=== PATIENT | male | born 2000 | race Caucasian/White ===

== ENCOUNTER 2019-03-05 21:32 | Emergency (ER) | payer MEDICAID, OTHER ==
[~2019-03-05] VITALS: Ht 172.7 cm; Wt 99.8 kg
[~2019-03-05 21:32] MED LIST: ACET650S53
[2019-03-05 21:42] VITALS: BP 123/73
--- NOTE | 2019-03-05 21:42 | NUR ---
TO BED # 09 AMBULATORY WITH MOTHER
--- NOTE | 2019-03-05 22:00 | NUR ---
18/M BIB MOTHER AND BROTHER, C/O CHRONIC L SIDED ABD PAIN, X5 DAYS WORSENING. REPORTS DECREASED APPETITE AND WATERY DIARRHEA X5 DAYS. PER PT'S MOTHER, PT HAS BEEN HAVING CHRONIC DIARRHEA OR "EVERYTHING GOING THROUGH" AND CHRONIC ABD PAIN, X5 YEARS. GI APPOINTMENT IN 03/22. DENIES FEVER/CHILLS, N/V. AOX4, SKIN NORMAL WARM AND DRY, RR EVEN AND UNLABORED. LUNG SOUNDS CLEAR BL. BS ACTIVE X4, ABD SOFT ROUND TENDNER DIFFUSELY. HX MIGRAINE, DEVELOPMENTAL DELAY, CHRONIC DIARRHEA X5 YEARS OTC MOTRIN 600MG (LAST YESTERDAY)
--- NOTE | 2019-03-05 23:00 | NUR ---
DR WILLIAMSON AT BEDSIDE
--- NOTE | 2019-03-05 23:12 | NUR ---
PT LAYING IN BED, MOTHER AND BROTHER AT BEDSIDE. VSS. ALL NEEDS MET.
[2019-03-05 23:14] VITALS: BP 113/70
--- NOTE | 2019-03-05 23:14 | NUR ---
Patient discharged with vital signs stable by Dr. Leung. Written and verbal after care instructions given and explained by Dr. Leung. Ambulatory with steady gait. All questions addressed prior to discharge by Dr. Leung. ID band removed by Dr. Leung. Patient advised to follow up with PMD. Rx of Cipro given by Dr. Leung. Patient educated on indication of medication including possible reaction and side effects by Dr. Leung. Opportunity to ask questions provided and answered by Dr. Leung.
== END 2019-03-05 23:14 | disposition home or self-care (01) ==
LOC: MED 21:32
DX: A04.9 Bacterial intestinal infection, unspecified (principal); Z79.1 Long term (current) use of non-steroidal anti-inflammatories (NSAID)
CPT/HCPCS: 99283

== ENCOUNTER 2019-10-17 18:37 | Emergency (ER) | payer OTHER ==
[~2019-10-17] VITALS: Ht 170.2 cm; Wt 95.7 kg
[2019-10-17 19:20] VITALS: BP 111/60
--- NOTE | 2019-10-17 19:23 | NUR ---
TO LOBBY A/W BED AMBULATORY
--- NOTE | 2019-10-17 20:34 | NUR ---
pt ambulated to bed 03
[2019-10-17 21:30] VITALS: BP 113/86
--- NOTE | 2019-10-17 21:30 | NUR ---
Patient discharged with v/s stable. Accompanied by mother. No distress or c/o pain. Written and verbal after care instructions given and explained. Patient alert, oriented and verbalized understanding of instructions. Ambulatory with steady gait. All questions addressed prior to discharge. ID band removed. Patient advised to follow up with PMD. Rx of Acetaminophen, Ibuprofen, and Promethazine given. Patient educated on indication of medication including possible reaction and side effects. Opportunity to ask questions provided and answered.
== END 2019-10-17 21:30 | disposition home or self-care (01) ==
LOC: MED 18:37
DX: J06.9 Acute upper respiratory infection, unspecified (principal); G43.909 Migraine, unspecified, not intractable, without status migrainosus; F41.9 Anxiety disorder, unspecified; Z90.49 Acquired absence of other specified parts of digestive tract; Z79.899 Other long term (current) drug therapy
CPT/HCPCS: 87804; 99283

== ENCOUNTER 2019-11-16 09:43 | Emergency (ER) | payer OTHER ==
[~2019-11-16] VITALS: Ht 167.6 cm; Wt 99.8 kg
--- NOTE | 2019-11-16 09:52 | NUR ---
Patient ambulated to bed 9. RN evaluating patient at bedside.
[2019-11-16 09:57] VITALS: BP 152/75
--- NOTE | 2019-11-16 10:04 | NUR ---
BIB MOTHER C/O HAVING COUGH WITH GREENISH PHLEGM, SORE THROAT, LOSS OF APPETITE, DROWSINESS, CHILLS, SUBJECTIVE FEVER FOR 3 DAYS. MOTHER GAVE IBUPROFEN YESTERDAY. PT NOT RECEIVED FLU SHOT THIS YEAR. DENIES N/V/D; SKIN IS PINK/WARM/DRY; AAOX3 WITH EVEN AND STEADY GAIT; LUNGS CLEAR BL; HR EVEN AND REGULAR; PT DENIES ANY CP OR SOB, AT THIS TIME; PATIENT STATES PAIN OF 3/10 AT THIS TIME; VSS; PATIENT POSITIONED FOR COMFORT; HOB ELEVATED; BEDRAILS UP X1; BED DOWN. ER MD MADE AWARE OF PT STATUS. MOTHER IS AT BEDSIDE. MOTHER IS AT BEDSIDE.
--- NOTE | 2019-11-16 10:31 | NUR ---
Dr. Pham is evaluating the patient at bedside.
[2019-11-16 11:44] VITALS: BP 141/74
--- NOTE | 2019-11-16 11:44 | NUR ---
Patient discharged with v/s stable. Written and verbal after care instructions given and explained to mother. Patient alert, oriented and mother verbalized understanding of instructions. Ambulatory with steady gait. All questions addressed prior to discharge. ID band removed. Patient advised to follow up with PMD. Rx of Motrin and Prednisone given. Patient educated on indication of medication including possible reaction and side effects. Opportunity to ask questions provided and answered.
== END 2019-11-16 11:44 | disposition home or self-care (01) ==
LOC: MED 09:43
DX: J06.9 Acute upper respiratory infection, unspecified (principal); G43.909 Migraine, unspecified, not intractable, without status migrainosus; F41.9 Anxiety disorder, unspecified; Z79.899 Other long term (current) drug therapy; Z98.890 Other specified postprocedural states
CPT/HCPCS: 81002; 99283

== ENCOUNTER 2020-07-15 20:16 | Emergency (ER) | payer OTHER ==
[~2020-07-15] VITALS: Ht 172.7 cm; Wt 91.2 kg
[2020-07-15 20:33] VITALS: BP 118/81
--- NOTE | 2020-07-15 20:35 | NUR ---
in restroom providing urine sample
--- NOTE | 2020-07-15 20:39 | NUR ---
triaged and waiting in lobby
--- NOTE | 2020-07-15 20:48 | NUR ---
PT AMBULATED TO HOSPITAL BED WITH MOTHER AT BEDSIDE.
[2020-07-15 21:04] LABS: APPEARANCE,URINE CLEAR (CLEAR); BILIRUBIN,URINE NEGATIVE (NEGATIVE); BLOOD, URINE NEGATIVE (NEGATIVE); COLOR,URINE YELLOW (YELLOW); LEUKOCYTE ESTERASE ,URINE NEGATIVE (NEGATIVE); NITRITE, URINE NEGATIVE (NEGATIVE); PH,URINE 6.5 (5.0-9.0); UGLUCOSE NEGATIVE (NEGATIVE)
[2020-07-15 21:04] LABS: HEMATOCRIT 44.8 % (36-52); HEMOGLOBIN 15.1 g/dL (12.0-18.0); MEAN CORPUSCULAR HEMOGLOBIN 29 pg (27-31); MEAN CORPUSCULAR HGB CONC 34 g/dL (33-37); MEAN CORPUSCULAR VOLUME 85.8 fL (80-94); PLATELET COUNT (AUTO) 322 K/uL (140-450); RED BLOOD CELL COUNT(AUTO) 5.22 MIL/uL (4.20-6.10); RED CELL DISTRIBUTION WIDTH 13.9 % (11.6-13.7); WHITE BLOOD COUNT (AUTO) 16.4 K/uL (4.8-10.8)
--- NOTE | 2020-07-15 21:05 | NUR ---
Dr. Cody examining patient.
[2020-07-15 21:19] LABS: ALBUMIN 4.3 g/dL (3.4-5.0); ANION GAP 12.9 (8-16); CARBON DIOXIDE 26.2 mmol/L (21-32); CREATININE 0.9 mg/dL (0.6-1.3); POTASSIUM 4.1 mmol/L (3.5-5.1)
[2020-07-15 21:26] LABS: LYMPHOCYTES % (MANUAL) 8 % (20-46); MONOCYTES % (MANUAL) 6 % (5-12)
[2020-07-15 22:32] VITALS: BP 118/81
--- NOTE | 2020-07-15 22:32 | NUR ---
20 Y/O MALE BIB MOTHER TO ER FOR C/O ALL QUADRANT ABDOMINAL PAIN. PT IS AUTISTIC. PT STATES HIS PAIN 10/10. MOTHER STATES SHE CAME HOME, AND [id number] STATED THE PT HAD BEEN CRYING THROUGHOUT THE DAY DUE TO "STOMACH ACHE". PT POINTS TO ALL QUADRANTS OF ABDOMEN AND STATES IT IS TTP, AND WHEN ASKED STATES PAIN IS 10/10. MOTHER DENIES TRAUMA/INJURY TO AFFECTED AREAS, VOMITING, DIARRHEA, FEVER, COUGH, DYSURIA. MOTHER STATES PT HAS UPCOMING APPOINTMENTS WITH GASTRO, DUE TO C/O ABDOMINAL PAIN. A&O X3, VSS, R/R EQUAL, AND UNLABORED. SIDE RAIL X2, BED IN LOW POSITION, MOTHER AT BEDSIDE, WILL CONTINUE TO MONITOR. NKDA PMH: TONSILITIS, MIGRAINES, AUSTISM, GOUT, ANXIETY
--- NOTE | 2020-07-15 22:32 | NUR ---
PT IS AUTISTIC, MOTHER IS PT'S REAMER HAND, AND SIGNED DC PAPERWORK. Patient discharged with v/s stable. Written and verbal after care instructions given and explained. Patient verbalized understanding. Ambulatory with steady gait. All questions addressed prior to discharge. Advised to follow up with PMD.
== END 2020-07-15 22:32 | disposition home or self-care (01) ==
LOC: MED 20:16
DX: R10.13 Epigastric pain (principal); F84.0 Autistic disorder
CPT/HCPCS: 36415; 80053; 81003; 83690; 85025; 99283

== ENCOUNTER 2021-04-07 04:44 | Observation (INO) | payer OTHER, SELFPAY ==
[~2021-04-07] VITALS: Ht 170.2 cm; Wt 95.3 kg
[2021-04-07 04:59] VITALS: BP 126/69
--- NOTE | 2021-04-07 05:02 | NUR ---
TO LOBBY A/W BED AMBULATORY WITH MOTHER
[2021-04-07] MEDS ORDERED: KETOROLAC 30 MG/ML VIAL IVP ONE (05:05)
[2021-04-07] MEDS ORDERED: ONDANSETRON 4 MG/2 ML VIAL IVP ONE (05:05)
[2021-04-07] MEDS ORDERED: NACL 0.9% 1,000 ML IV SCH (05:05)
--- NOTE | 2021-04-07 05:58 | NUR ---
leah swab collected and sent to lab.
--- NOTE | 2021-04-07 05:58 | NUR ---
Dr. Pham notified pt and mother of pt CT results for possibe Acute appy
[2021-04-07] MEDS ORDERED: MELA1TAB15 PO (06:15)
[2021-04-07] MEDS ORDERED: PIPERACILLIN/TAZOBACTAM 4.5 GM in DEXTROSE 5% 100 ML IV ONE (06:15)
[2021-04-07] MEDS ORDERED: PIPERACILLIN/TAZOBACTAM 4.5 GM VIAL IV ONE (06:17)
[2021-04-07 06:25] LABS: APPEARANCE,URINE CLEAR (CLEAR); BILIRUBIN,URINE NEGATIVE (NEGATIVE); BLOOD, URINE NEGATIVE (NEGATIVE); COLOR,URINE YELLOW (YELLOW); LEUKOCYTE ESTERASE ,URINE NEGATIVE (NEGATIVE); NITRITE, URINE NEGATIVE (NEGATIVE); PH,URINE 6.5 (5.0-9.0); UGLUCOSE NEGATIVE (NEGATIVE)
[2021-04-07 06:27] LABS: BASOPHILS % (AUTO) 0.2 % (0.0-2.0); EOSINOPHILS # (AUTO) 0.1 K/uL (0-0.4); EOSINOPHILS % (AUTO) 0.5 % (0.0-4.0); HEMATOCRIT 42.2 % (36-52); HEMOGLOBIN 14.2 g/dL (12.0-18.0); LYMPHOCYTES # (AUTO) 2.1 K/uL (2.0-11.5); LYMPHOCYTES % (AUTO) 14.8 % (20.5-51.1); MEAN CORPUSCULAR HEMOGLOBIN 29 pg (27-31); MEAN CORPUSCULAR HGB CONC 34 g/dL (33-37); MEAN CORPUSCULAR VOLUME 86.9 fL (80-94); MONOCYTES # (AUTO) 1.2 K/uL (0.8-1.0); MONOCYTES % (AUTO) 8.4 % (1.7-9.3); NEUTROPHILS # (AUTO) 10.7 K/uL (1.8-7.7); NEUTROPHILS % (AUTO) 76.1 % (42.2-75.2); PLATELET COUNT (AUTO) 334 K/uL (140-450); RED BLOOD CELL COUNT(AUTO) 4.86 MIL/uL (4.20-6.10); RED CELL DISTRIBUTION WIDTH 13.7 % (11.6-13.7)
[2021-04-07 06:49] LABS: ALBUMIN 3.7 g/dL (3.4-5.0); ANION GAP 14.9 (8-16); CARBON DIOXIDE 24.7 mmol/L (21-32); CREATININE 0.9 mg/dL (0.6-1.3); POTASSIUM 3.6 mmol/L (3.5-5.1); TOTAL BILIRUBIN 1.2 mg/dL (0.0-1.0)
--- NOTE | 2021-04-07 07:12 | NUR ---
REPORT RECEIVED FROM BISHOP HAYDEN, TRANSFER OF CARE AT THIS TIME
--- NOTE | 2021-04-07 07:12 | NUR ---
DENNISAR to Sung Avalos
[2021-04-07] MEDS ORDERED: KCL 20 MEQ/WATER INJ PREMIX 200 ML IV PRN (07:40)
[2021-04-07] MEDS ORDERED: ONDANSETRON 4 MG/2 ML VIAL IVP PRN ×2 (07:40→13:15)
[2021-04-07] MEDS ORDERED: POTASSIUM CHLORIDE 10 MEQ TABER PO PRN (07:40)
[2021-04-07] MEDS ORDERED: ACETAMINOPHEN 325 MG TAB PO PRN (07:40)
[2021-04-07] MEDS ORDERED: MAG SULF 2000 MG/WATER PREMIX 50 ML IV PRN (07:40)
[2021-04-07] MEDS ORDERED: HYDROcodone/APAP 5/325 MG 1 TAB TAB PO PRN (07:40)
[2021-04-07] MEDS ORDERED: MAGNESIUM OXIDE 400 MG TAB PO PRN (07:40)
[2021-04-07 08:00] VITALS: BP 123/70
[2021-04-07] MEDS: DOCUSATE SODIUM 100 MG GELCAP PO SCH (08:36)
[2021-04-07] MEDS: NACL 0.9% 1,000 ML IV SCH ×2 (08:37→20:10)
[2021-04-07] MEDS: MORPHINE SULFATE 4 MG/ML SYR IVP PRN (09:50)
--- NOTE | 2021-04-07 11:29 | NUR ---
PER DR SANDOVAL OK TO GIVE NORCO FOR PAIN THAT PT STILL CONTINUES TO HAVE AFTER MORPHINE
--- NOTE | 2021-04-07 11:45 | NUR ---
VERBAL CONSENT OBTAINED BY MOTHER OVER TELEPHONE BY ANESTHESIOLOGIST FOR PROCEDURE
[2021-04-07] MEDS ORDERED: fentaNYL citrate 0.05 MG/ML VIAL ONE (11:51)
[2021-04-07] MEDS ORDERED: MIDAZOLAM 2 MG/2 ML VIAL ONE (11:51)
[2021-04-07] MEDS ORDERED: PROPOFOL 200 MG/20 ML VIAL IV ONE (11:54)
[2021-04-07] MEDS ORDERED: SUCCINYLCHOLINE CHLORIDE 200 MG/10 ML VIAL IVP ONE (11:54)
--- NOTE | 2021-04-07 12:15 | NUR ---
DR SANCHEZ AT BEDSIDE TALKING TO PT ABOUT PROCEDURE
[2021-04-07] MEDS ORDERED: PIPERACILLIN/TAZOBACTAM 3.375 GM VIAL IV ONE (12:18)
[2021-04-07] MEDS: PIPERACILLIN/TAZOBACTAM 3.375 GM in DEXTROSE 5% 50 ML IV SCH ×2 (12:28→18:53)
--- NOTE | 2021-04-07 12:34 | NUR ---
PT TAKEN BY OR TEAM
[2021-04-07] MEDS ORDERED: ROCURONIUM 50 MG/5 ML VIAL IV ONE (12:35)
[2021-04-07] MEDS ORDERED: SEVOFLURANE 250 ML BTL INH ONE (12:35)
[2021-04-07] MEDS ORDERED: DEXAMETHASONE 4 MG/ML VIAL ONE (12:58)
[2021-04-07] MEDS ORDERED: ONDANSETRON 4 MG/2 ML VIAL ONE (12:58)
[2021-04-07] MEDS ORDERED: HYDROmorphone 1 MG/ML AMP IVP PRN (13:15)
[2021-04-07] MEDS ORDERED: diphenhydrAMINE 50 MG/ML VIAL IVP PRN (13:15)
[2021-04-07] MEDS: LACTATED RINGERS 1,000 ML IV SCH ×3 (13:15→14:45)
[2021-04-07] MEDS ORDERED: MEPERIDINE 25 MG/ML SYR IVP PRN (13:15)
[2021-04-07] MEDS ORDERED: PHENYLEPHRINE 10 MG/ML VIAL ONE (13:30)
[2021-04-07] MEDS ORDERED: SUGAMMADEX SODIUM 200 MG/2 ML VIAL IV ONE (13:31)
[2021-04-07] MEDS ORDERED: MEPERIDINE 50 MG/ML SYR ONE (13:34)
--- NOTE | 2021-04-07 15:20 | NUR ---
PT ARRIVED TO UNIT BY MAKAYLARTREVOR AND OR NURSES. PT IS WITH MOTHER AND FATHER. PT IS SLEEPING AND COMPLAINS OF NO PAIN. PER OR NURSE, PT IS A&OX4 BREATHING ON RA AND IS ON A LIQUID DIET. PT IS CONTINENT AND HAD A BM TODAY 04/07/21. 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 LAST PAIN MED WAS GIVEN AT OR AND IT WAS FENTANYL. PT IS SLEEPING AND COMPLAINS OF NO PAIN. SITUATED PT TO ROOMAND SURROUNDING AND INTRODUCED MYSELF THE NURSE FOR DAY SHIFT. APPLIED NON SKID SOCKS ON AND TOOK VS. TEMP: 98/1 ORAL, BP 123/70, HR:114, AND SPO2:96 RA. CALL LIGHT IS WITHIN REACH AND PT IS SLEEPING. WILL CONTINUE PLAN OF CARE.
--- NOTE | 2021-04-07 16:10 | NUR ---
PROVIDED PT WITH URINAL TO URINATE.
--- NOTE | 2021-04-07 16:31 | NUR ---
PATIENT HAS BEEN SCREENED AND CATEGORIZED LOW NUTRITION RISK. PATIENT WILL BE SEEN WITHIN 7 DAYS OF ADMISSION. 04/13/[address]
--- NOTE | 2021-04-07 17:32 | NUR ---
PT REQUESTED TO BE UP FROM BED TO HAVE BM. I SAT PT PT ON BED TO DANGLE FEET FRO 10MINUTES. PT WAS ABLE TO AMBULATE UNDER NO DISTRESS AND TOLERABLE PAIN. PT HAD A BM.
--- NOTE | 2021-04-07 17:40 | NUR ---
PT ATE DINNER ADEQUATELY AND TOOK FOOD WELL. NO ACUTE DISTRESS NOTED.FAMILY IS AT BEDSIDE.
--- NOTE | 2021-04-07 18:30 | NUR ---
ADMINISTERED SCHEDULED MEDICATIONS. EDUCATED PT AND FAMILY ON MEDICATIONS AND MOA AND SIDE EFFECTS. PT AND FAMILY VERBALIZED UNDERSTANDING AND HAD NO FURTHER QUESTIONS. TOOK PICTURES OF INCISIONS. WILL PLACE ON CHART. IV ABX ARE RUNNING WELL. CALL LIGHT IS WITHIN REACH. WILL CONTINUE TO MONITOR.
--- NOTE | 2021-04-07 19:30 | NUR ---
ENDORSED PT FOR CONTINUITY OF CARE JASMINA NURSE. PT IS STABLE.
--- NOTE | 2021-04-07 19:33 | NUR ---
RECEIVED REPORT AT BEDSIDE FROM AM NURSE. PATIENT IN BED CALM, RESTING COMFORTABLY. NO SOB NOTED. ALL SAFETY PRECAUTIONS IN PLACE. MOM AT BEDSIDE. CALL LIGHT WITHIN REACH. DENIES PAIN. WILL CONTINUE TO MONITOR.
[2021-04-07 20:00] VITALS: BP 116/63
[2021-04-08] MEDS: PIPERACILLIN/TAZOBACTAM 3.375 GM in DEXTROSE 5% 50 ML IV SCH ×3 (00:44→12:07)
--- NOTE | 2021-04-08 05:42 | NUR ---
MEDICATIONS ADMINISTERED ORDERED.
[2021-04-08 06:00] LABS: PROTHROMBIN TIME 10.5 secs (10.8-13.4)
[2021-04-08 06:05] LABS: BASOPHILS % (AUTO) 0.1 % (0.0-2.0); HEMATOCRIT 40.6 % (36-52); HEMOGLOBIN 13.5 g/dL (12.0-18.0); LYMPHOCYTES # (AUTO) 1.1 K/uL (2.0-11.5); LYMPHOCYTES % (AUTO) 8.8 % (20.5-51.1); MEAN CORPUSCULAR HEMOGLOBIN 29 pg (27-31); MEAN CORPUSCULAR HGB CONC 33 g/dL (33-37); MEAN CORPUSCULAR VOLUME 87.5 fL (80-94); MONOCYTES # (AUTO) 0.7 K/uL (0.8-1.0); MONOCYTES % (AUTO) 5.7 % (1.7-9.3); NEUTROPHILS # (AUTO) 11.2 K/uL (1.8-7.7); NEUTROPHILS % (AUTO) 85.4 % (42.2-75.2); PLATELET COUNT (AUTO) 333 K/uL (140-450); RED BLOOD CELL COUNT(AUTO) 4.64 MIL/uL (4.20-6.10); RED CELL DISTRIBUTION WIDTH 14.3 % (11.6-13.7); WHITE BLOOD COUNT (AUTO) 13.1 K/uL (4.8-10.8)
[2021-04-08 06:09] LABS: ALBUMIN 3.2 g/dL (3.4-5.0); ANION GAP 16.9 (8-16); CARBON DIOXIDE 23.1 mmol/L (21-32); CREATININE 0.8 mg/dL (0.6-1.3); MAGNESIUM 2.1 mg/dL (1.8-2.4); TOTAL BILIRUBIN 1.6 mg/dL (0.0-1.0)
--- NOTE | 2021-04-08 07:20 | NUR ---
ENDORSED TO AM SHIFT NURSE FOR CONTINUITY OF CARE. PATIENT IS STABLE.
[2021-04-08 08:00] VITALS: BP 124/70
--- NOTE | 2021-04-08 08:39 | NUR ---
Patient alert, oriented and able to verbalize needs. Vitals stable and has mild abdominal pain. safety co measures in place with call light within reach and has no further needs.
[2021-04-08] MEDS: NACL 0.9% 1,000 ML IV SCH (10:15)
[2021-04-08] MEDS: DOCUSATE SODIUM 100 MG GELCAP PO SCH (10:15)
[2021-04-08] MEDS: MORPHINE SULFATE 4 MG/ML SYR IVP PRN (12:07)
[2021-04-08 15:40] VITALS: BP 124/70
== END 2021-04-08 16:00 | disposition home or self-care (01) ==
LOC: MED 04:44 → MMU 07:42 → MTU 15:25
PROVIDERS: ADMIT Hospitalist; ATTEND Hospitalist
DX: K35.80 Unspecified acute appendicitis (principal); R11.2 Nausea with vomiting, unspecified; Z20.822 Contact with and (suspected) exposure to COVID-19; E66.9 Obesity, unspecified; Z68.32 Body mass index [BMI] 32.0-32.9, adult; Z79.899 Other long term (current) drug therapy
CPT/HCPCS: 36415; 44970; 74176; 80053; 81003; 82374; 83036; 83690; 83735; 85025; 85610; 86886; 86900; 86901; 87081; 87426; 88304; 96361; 96365; 96366; 96375; 96376; 99284; G0378; J0330; J1100; J1885; J2175; J2250; J2270; J2370; J2405; J2543; J2704; J3010; J3490; J7030; J7060

== ENCOUNTER 2021-12-23 13:09 | Emergency (ER) | payer OTHER ==
[~2021-12-23] VITALS: Ht 172.7 cm; Wt 95.3 kg
[~2021-12-23 13:09] MED LIST changes: +MELA1TAB15 PO
[2021-12-23 13:24] VITALS: BP 106/70
--- NOTE | 2021-12-23 13:53 | NUR ---
PT AMBULATED TO BED 9 WITH MOM
--- NOTE | 2021-12-23 14:13 | NUR ---
21 y/o M BIB mother c/o RUQ abdominal pain, diarrhea, decreased appetite x 3 weeks. Patient A&Ox4, ambulatory, states 10/10, non-radiating pain that worsens after meals and stomach sleeping. RUQ tender to palpation. Mother at bedside also states diarrhea x 4 episodes yesterday; denies medications prior to arrival. Denies nausea, vomiting, constipation, chest pain, dysuriam, urinary symptoms, fever, chills. Pt placed on child monitor. Bed locked in lowest position, side rails x 1. Mother remains at bedside. PMH: DD (autism), migraines NKDA Meds: Denies Sx: appendectomy, tonsillectomy
[2021-12-23] MEDS ORDERED: NACL 0.9% 1,000 ML IV ONE (14:15)
[2021-12-23] MEDS ORDERED: KETOROLAC 15 MG/ML VIAL IVP ONE (14:15)
--- NOTE | 2021-12-23 14:21 | NUR ---
Dr. Daniel is evaluating patient at bedside
[2021-12-23] MEDS ORDERED: FAMOTIDINE 20 MG/2 ML VIAL IVP ONE (14:25)
[2021-12-23 15:04] LABS: APPEARANCE,URINE CLEAR (CLEAR); BILIRUBIN,URINE NEGATIVE (NEGATIVE); BLOOD, URINE NEGATIVE (NEGATIVE); COLOR,URINE YELLOW (YELLOW); LEUKOCYTE ESTERASE ,URINE NEGATIVE (NEGATIVE); NITRITE, URINE NEGATIVE (NEGATIVE); PH,URINE 5.5 (5.0-9.0); UGLUCOSE NEGATIVE (NEGATIVE)
[2021-12-23 15:07] LABS: BASOPHILS % (AUTO) 0.4 % (0.0-2.0); EOSINOPHILS # (AUTO) 0.2 K/uL (0-0.4); EOSINOPHILS % (AUTO) 2.4 % (0.0-4.0); HEMATOCRIT 43.7 % (36-52); HEMOGLOBIN 14.6 g/dL (12.0-18.0); LYMPHOCYTES # (AUTO) 2.7 K/uL (2.0-11.5); LYMPHOCYTES % (AUTO) 32.4 % (20.5-51.1); MEAN CORPUSCULAR HEMOGLOBIN 29 pg (27-31); MEAN CORPUSCULAR HGB CONC 34 g/dL (33-37); MEAN CORPUSCULAR VOLUME 86.4 fL (80-94); MONOCYTES # (AUTO) 0.6 K/uL (0.8-1.0); MONOCYTES % (AUTO) 7.3 % (1.7-9.3); NEUTROPHILS # (AUTO) 4.7 K/uL (1.8-7.7); NEUTROPHILS % (AUTO) 57.5 % (42.2-75.2); PLATELET COUNT (AUTO) 315 K/uL (140-450); RED BLOOD CELL COUNT(AUTO) 5.05 MIL/uL (4.20-6.10); WHITE BLOOD COUNT (AUTO) 8.2 K/uL (4.8-10.8)
[2021-12-23 15:14] LABS: ALBUMIN 3.7 g/dL (3.4-5.0); ANION GAP 12.8 (8-16); CARBON DIOXIDE 25.6 mmol/L (21-32); CREATININE 0.7 mg/dL (0.6-1.3); POTASSIUM 5.4 mmol/L (3.5-5.1); TOTAL BILIRUBIN 0.9 mg/dL (0.0-1.0)
--- NOTE | 2021-12-23 15:36 | NUR ---
PT STATES THEY NO LONGER FEEL PAIN AND NO LONGER FEEL NAUSEATED
[2021-12-23 15:44] VITALS: BP 108/67
[2021-12-23] MEDS ORDERED: ACET-10509 PO (16:04)
--- NOTE | 2021-12-23 16:27 | NUR ---
Patient discharged with v/s stable. Written and verbal after care instructions given and explained for Biliary Colic, Adult. Patient alert, oriented and verbalized understanding of instructions. Ambulatory with by parent. All questions addressed prior to discharge. ID band removed. Patient advised to follow up with PMD. Rx of Tylenol Extra Strength given. Patient educated on indication of medication including possible reaction and side effects. Opportunity to ask questions provided and answered.
== END 2021-12-23 16:57 | disposition home or self-care (01) ==
LOC: MED 13:09
DX: K80.70 Calculus of gallbladder and bile duct without cholecystitis without obstruction (principal); E87.6 Hypokalemia; Z90.49 Acquired absence of other specified parts of digestive tract; Z79.899 Other long term (current) drug therapy
CPT/HCPCS: 36415; 76705; 80053; 81003; 83690; 85025; 96361; 96374; 96375; 99284; J1885; J3490; J7030; Q0092

== ENCOUNTER 2022-02-18 14:55 | Inpatient (IN) | payer OTHER ==
[~2022-02-18] VITALS: Ht 167.6 cm; Wt 100.7 kg
[~2022-02-18 14:55] MED LIST changes: +ACET-10509 PO
[2022-02-18 15:01] VITALS: BP 116/74
[2022-02-18 15:38] LABS: APPEARANCE,URINE CLEAR (CLEAR); BASOPHILS % (AUTO) 0.8 % (0.0-2.0); BILIRUBIN,URINE NEGATIVE (NEGATIVE); BLOOD, URINE NEGATIVE (NEGATIVE); COLOR,URINE YELLOW (YELLOW); EOSINOPHILS # (AUTO) 0.1 K/uL (0-0.4); EOSINOPHILS % (AUTO) 1.7 % (0.0-4.0); HEMATOCRIT 42.5 % (36-52); HEMOGLOBIN 14.5 g/dL (12.0-18.0); LEUKOCYTE ESTERASE ,URINE NEGATIVE (NEGATIVE); LYMPHOCYTES # (AUTO) 1.9 K/uL (2.0-11.5); LYMPHOCYTES % (AUTO) 32.6 % (20.5-51.1); MEAN CORPUSCULAR HEMOGLOBIN 29 pg (27-31); MEAN CORPUSCULAR HGB CONC 34 g/dL (33-37); MEAN CORPUSCULAR VOLUME 85.4 fL (80-94); MONOCYTES # (AUTO) 0.5 K/uL (0.8-1.0); MONOCYTES % (AUTO) 8.5 % (1.7-9.3); NEUTROPHILS # (AUTO) 3.3 K/uL (1.8-7.7); NEUTROPHILS % (AUTO) 56.4 % (42.2-75.2); NITRITE, URINE NEGATIVE (NEGATIVE); PH,URINE 6.5 (5.0-9.0); PLATELET COUNT (AUTO) 299 K/uL (140-450); RED BLOOD CELL COUNT(AUTO) 4.97 MIL/uL (4.20-6.10); RED CELL DISTRIBUTION WIDTH 13.7 % (11.6-13.7); UGLUCOSE NEGATIVE (NEGATIVE); WHITE BLOOD COUNT (AUTO) 5.9 K/uL (4.8-10.8)
[2022-02-18 15:54] LABS: ANION GAP 11.4 (8-16); CARBON DIOXIDE 27.8 mmol/L (21-32); CREATININE 0.9 mg/dL (0.6-1.3); POTASSIUM 4.2 mmol/L (3.5-5.1); TOTAL BILIRUBIN 1.3 mg/dL (0.0-1.0)
--- NOTE | 2022-02-18 19:20 | NUR ---
REPORT GIVEN TO TRESSA HAYDEN
[2022-02-18] MEDS ORDERED: MORPHINE SULFATE 4 MG/ML SYR IVP PRN (19:30)
[2022-02-18] MEDS ORDERED: POTASSIUM CHLORIDE 10 MEQ TABER PO PRN (19:30)
[2022-02-18] MEDS ORDERED: MAG SULF 2000 MG/WATER PREMIX 50 ML IV PRN (19:30)
[2022-02-18] MEDS ORDERED: ACETAMINOPHEN 325 MG TAB PO PRN (19:30)
[2022-02-18] MEDS ORDERED: MAGNESIUM OXIDE 400 MG TAB PO PRN (19:30)
[2022-02-18] MEDS ORDERED: HYDROcodone/APAP 5/325 MG 1 TAB TAB PO PRN (19:30)
[2022-02-18] MEDS ORDERED: KCL 20 MEQ/WATER INJ PREMIX 200 ML IV PRN (19:30)
[2022-02-18] MEDS ORDERED: ONDANSETRON 4 MG/2 ML VIAL IVP PRN (19:30)
[2022-02-18] MEDS: NACL 0.9% 1,000 ML IV SCH (20:09)
[2022-02-18] MEDS ORDERED: IBUP-2213 PO (20:11)
[2022-02-18] MEDS ORDERED: MELA10CA PO (20:11)
--- NOTE | 2022-02-18 20:41 | NUR ---
Dr. Piper examining patient.
--- NOTE | 2022-02-18 21:11 | NUR ---
PT TAKEN TO CT
--- NOTE | 2022-02-18 21:50 | NUR ---
REPORT GIVEN TO SILVIA BUSTILLO
--- NOTE | 2022-02-18 21:59 | NUR ---
Patient will be admitted to care of DR BARRIOS. Admited to Med/Surg. Will go to room 108B. Belongings list completed. Report to JACKELYN FRANCO.
--- NOTE | 2022-02-18 22:15 | NUR ---
Admitted from ER TO MED SURGICAL UNIT, with chief complaint of RIGHT UPPER QUADRANT PAIN FOR TWO DAYS , 21 y/o ,Male, Cooperative, AWAKE, A/OX2-3. ABLE TO VERBALIZED BASIC NEEDS. PER FATHER PATIENT IS AUTISTIC, AT TIMES TRYING TO ESCAPE. LUNGS CLEAR ON BILATERAL AUSCULTATION. ABDOMEN SOFT, NON-TENDER WITH ACTIVE BOWEL SOUNDS ON ALL QUADRANTS.DENIES PAIN 0/10 AT THIS TIME. oriented to call light, bed, phone,television, bathroom, smoking policy,visiting hours, procedures, ID bracelet on. Belongings list checked.
--- NOTE | 2022-02-18 22:30 | NUR ---
Patient's Plan of Care was discussed and reviewed with IWONA FRANCO.
[2022-02-19] VITALS: BP 118/64
--- NOTE | 2022-02-19 | NUR ---
SLEEPING COMFORTABLY IN BED, RESPIRATION EVEN AND UNLABORED. BROTHER AT THE BEDSIDE.
[2022-02-19 04:00] VITALS: BP 104/65
--- NOTE | 2022-02-19 04:00 | NUR ---
ASLEEP IN BED. VS STABLE.
--- NOTE | 2022-02-19 06:00 | NUR ---
NO COMPLAINT OF ABDOMINAL PAIN DURING THE SHIFT. ABLE TO SLEEP WELL.
[2022-02-19 06:17] LABS: BASOPHILS % (AUTO) 0.6 % (0.0-2.0); EOSINOPHILS # (AUTO) 0.1 K/uL (0-0.4); EOSINOPHILS % (AUTO) 1.8 % (0.0-4.0); HEMATOCRIT 43.2 % (36-52); HEMOGLOBIN 14.4 g/dL (12.0-18.0); LYMPHOCYTES # (AUTO) 2.3 K/uL (2.0-11.5); LYMPHOCYTES % (AUTO) 37.2 % (20.5-51.1); MEAN CORPUSCULAR HEMOGLOBIN 29 pg (27-31); MEAN CORPUSCULAR HGB CONC 33 g/dL (33-37); MEAN CORPUSCULAR VOLUME 86.5 fL (80-94); MONOCYTES # (AUTO) 0.5 K/uL (0.8-1.0); MONOCYTES % (AUTO) 8.3 % (1.7-9.3); NEUTROPHILS # (AUTO) 3.2 K/uL (1.8-7.7); NEUTROPHILS % (AUTO) 52.1 % (42.2-75.2); PLATELET COUNT (AUTO) 308 K/uL (140-450); RED BLOOD CELL COUNT(AUTO) 4.99 MIL/uL (4.20-6.10); RED CELL DISTRIBUTION WIDTH 13.7 % (11.6-13.7); WHITE BLOOD COUNT (AUTO) 6.2 K/uL (4.8-10.8)
[2022-02-19 06:36] LABS: ALBUMIN 3.8 g/dL (3.4-5.0); ANION GAP 9.7 (8-16); CARBON DIOXIDE 28.6 mmol/L (21-32); CREATININE 0.9 mg/dL (0.6-1.3); MAGNESIUM 2.1 mg/dL (1.8-2.4); POTASSIUM 4.3 mmol/L (3.5-5.1); TOTAL BILIRUBIN 1.4 mg/dL (0.0-1.0)
--- NOTE | 2022-02-19 07:15 | NUR ---
ENDORSED TO AM SHIFT NURSE FOR CONTINUITY OF CARE.
--- NOTE | 2022-02-19 07:30 | NUR ---
RECEIVED PT CARE AND REPORT FROM SALVADOR HAYDEN. PT IS RESTING IN BED SEMI-FOWLERS WITH OU CLOSED. BROTHER AT BEDSIDE. NO VISIBLE S/S OF DISTRESS, DISCOMFORT, PAIN OR SOB. CALL LIGHT WITHIN REACH, ALL NEEDS MET AT THIS TIME.
[2022-02-19 08:00] VITALS: BP 112/77
[2022-02-19] MEDS: NACL 0.9% 1,000 ML IV SCH ×2 (08:24→20:30)
--- NOTE | 2022-02-19 09:33 | NUR ---
PATIENT HAS BEEN SCREENED AND CATEGORIZED LOW NUTRITION RISK. PATIENT WILL BE SEEN WITHIN 7 DAYS OF ADMISSION. 02/25/[address]
--- NOTE | 2022-02-19 15:11 | NUR ---
DC PLANNING: THE PATIENT PRESENTED WITH C/O ABDOMINAL PAIN X 1 WEEK. ABDOMINAL US CONFIRMS CHOLELITHIASIS. PATIENT WITH H/O DEVELOPMENTAL DELAY, ORDERS FOR PATIENT TO BE NPO, PLANS FOR LAP OFE. CM SPOKE WITH THE PATIENT AT BEDSIDE WITH HIS BROTHER LUZ MARIA AND STEPFATHER BRIAN PRESENT. THE PATIENT LIVES WITH HIS MOM, STEP FATHER, 3 BROTHER AND 3 COUSINS IN A SINGLE STORY HOUSE. HE REQUIRES ASSISTANCE WITH ADLS BUT IS INDEPENDENT WITH AMBULATION. FAMILY FEELS THAT THEY CAN TAKE CARE OF THE PATIENT AFTER SURGERY AND HIS STEP FATHER HAS TAKEN TIME OFF FROM WORK TO HELP CARE FOR HIM. FAMILY IS NOT SURE IF THE PATIENT IS [facility] [place] CONNECTED BUT STATE THAT FAMILY MAKE HIS MEDICAL DECISIONS. THE PATIENT WAS VERBAL AND ABLE TO ANSWER QUESTIONS APPROPRIATELY, WAS PLEASANT AND ENGAGED WITH CM. NO H/O HOME HEALTH OR DME USE. PATIENT TO DC HOME AFTER SURGERY, CM WILL FOLLOW.
--- NOTE | 2022-02-19 15:35 | NUR ---
CALLED OR AND WAS TOLD THAT PATIENT'S SURGERY IS BEING POSTPONED UNTIL 02/20 AT 1330 D/T DR. CEE BEING UNABLE TO PERFORM SURGERY TODAY. INFORMED PT AND FAMILY OF SITUATION. TEXTED DR. HERNANDEZ REQUESTING DIET FOR PATIENT FOR REMAINDER OF THE DAY AND TO RESUME NPO AFTER MIDNIGHT TONIGHT. AWAITING ORDERS.
[2022-02-19 16:00] VITALS: BP 119/67
--- NOTE | 2022-02-19 18:28 | NUR ---
PT IS RESTING IN BED SEMI-FOWLERS, A&OX3, APPEARS CALM. FAMILY AT BEDSIDE. NO VISIBLE S/S OF DISTRESS, DISCOMFORT, PAIN OR SOB. CALL LIGHT WITHIN REACH, ALL NEEDS MET AT THIS TIME. Addendum: 02/19/22 at 1830 by Agency 01 JACKELYN RN WILL ENDORSE TO NOC SHIFT.
--- NOTE | 2022-02-19 19:15 | NUR ---
RECEIVED REPORT FROM LEISA HAYDEN PATIENT IN BED WITH SIDE RAILS UP X 2. NO NOTED PAIN/DISCOMFORT AT THIS TIME. NO NOTED RESPIRATORY DISTRESS. IV SITE CLEAN AND PATENT. PATIENT IN BED ALERT AND ORIENT X 3. MOTHER, GENE, AT BED SIDE. HEAD OF BED ELEVATED FOR COMFORT. PATIENT AND FAMILY ARE AWARE OF NOTHING BY MOUTH AFTER MIDNIGHT FOR TOMORROWS SURGICAL PROCEDURE. CONSENT IN PATIENT CHART FOR FINAL SIGNATURE FROM MD. NURSING WILL FREQUENT THE ROOM FOR ASSISTANCE AND NEEDS. MNURPH1
[2022-02-19 20:00] VITALS: BP 105/58
--- NOTE | 2022-02-19 20:05 | NUR ---
PATIENT MOTHER AT BED SIDE FOR EMOTIONAL SUPPORT ASSISTANCE WITH CARE. PATIENT WAS GIVEN TYLENOL FOR COMPLAINT OF HEADACHE. NURSING WILL REVISIT IN ONE HOUR FOR EFFECTIVENESS OF MEDICATION. [email or web address]
--- NOTE | 2022-02-19 21:00 | NUR ---
Patient's Plan of Care was discussed and reviewed with UNIX CONSULTANT: TAYLOR MARTIN
--- NOTE | 2022-02-19 21:05 | NUR ---
PATIENT WAS RELIEVED OF HEADACHE. PATIENT HAS HAD A TOTAL OF FOUR BOWEL MOVEMENTS AND THE DESCRIPTION WAS SOFT SERVE TEXTURE AND BROWN. [email or web address]
--- NOTE | 2022-02-20 03:03 | NUR ---
PATIENT IN BED ASLEEP WITH STABLE CONDITION. [email or web address]
[2022-02-20 04:00] VITALS: BP 110/57
--- NOTE | 2022-02-20 06:56 | NUR ---
PATIENT AWAKE IN BED WITH MOTHER AT BEDSIDE. NURSE REMINDED NPO UNTIL THE SURGICAL PROCEDURE LATER THIS AFTERNOON TODAY. PATIENT DENIES ANY
[2022-02-20 07:24] LABS: ALBUMIN 3.6 g/dL (3.4-5.0); ANION GAP 8.6 (8-16); CARBON DIOXIDE 28.2 mmol/L (21-32); CREATININE 0.8 mg/dL (0.6-1.3); POTASSIUM 3.8 mmol/L (3.5-5.1); TOTAL BILIRUBIN 1.5 mg/dL (0.0-1.0)
[2022-02-20 07:30] LABS: BASOPHILS # (AUTO) 0.1 K/uL (0.00-0.22); BASOPHILS % (AUTO) 2.2 % (0.0-2.0); EOSINOPHILS # (AUTO) 0.1 K/uL (0-0.4); EOSINOPHILS % (AUTO) 1.9 % (0.0-4.0); HEMATOCRIT 41.8 % (36-52); LYMPHOCYTES % (AUTO) 31.6 % (20.5-51.1); MEAN CORPUSCULAR HEMOGLOBIN 29 pg (27-31); MEAN CORPUSCULAR HGB CONC 34 g/dL (33-37); MEAN CORPUSCULAR VOLUME 86.2 fL (80-94); MONOCYTES # (AUTO) 0.5 K/uL (0.8-1.0); MONOCYTES % (AUTO) 7.8 % (1.7-9.3); NEUTROPHILS # (AUTO) 3.6 K/uL (1.8-7.7); NEUTROPHILS % (AUTO) 56.5 % (42.2-75.2); PLATELET COUNT (AUTO) 289 K/uL (140-450); RED BLOOD CELL COUNT(AUTO) 4.85 MIL/uL (4.20-6.10); RED CELL DISTRIBUTION WIDTH 14.3 % (11.6-13.7); WHITE BLOOD COUNT (AUTO) 6.4 K/uL (4.8-10.8)
--- NOTE | 2022-02-20 07:43 | NUR ---
ENDORSED TO JANET HAYDEN FOR CONTINUITY OF CARE. PATIENT WAS IN BED AND STABLE. [email or web address]
--- NOTE | 2022-02-20 07:43 | NUR ---
RECEIVED REPORT FROM NIGHTSHIFT NURSE FOR CONTINUITY OF CARE, PLAN OF CARE DISCUSSED. PT IS CURRENTLY AWAKE, A/OX3 AND IN STABLE CONDITION. SKIN INTACT, NO REDNESS OR SWELLING NOTED, PT DENIES PAIN. PT IS CONTINENT OF THE BOWEL AND BLADDER, AND IS ABLE TO AMBULATE TO THE BATHROOM WITH MINOR ASSIST. MOTHER AT THE BEDSIDE. EDUCATED PT AND MOTHER OF TIME FOR UPCOMING PROCEDURE. PT AND MOTHER VERBALIZED UNDERSTANDING.
[2022-02-20 08:00] VITALS: BP 111/64
[2022-02-20] MEDS: NACL 0.9% 1,000 ML IV SCH (09:11)
--- NOTE | 2022-02-20 09:30 | NUR ---
PT VISUALLY ASSESSED, CURRENTLY SLEEPING. PT DENIES PAIN AT THIS TIME.
--- NOTE | 2022-02-20 11:20 | NUR ---
PT VISUALLY ASSESSED, CURRENTLY AWAKE. PT DENIES PAIN AT THIS TIME. FATHER AT THE BEDSIDE.
--- NOTE | 2022-02-20 13:28 | NUR ---
PT VISUALLY ASSESSED, AND CURRENTLY AWAKE. PT DENIES PAIN AT THIS TIME.
--- NOTE | 2022-02-20 14:11 | NUR ---
CALLED OR CONCERNING UPDATE ON PT'S PROCEDURE. PER DESK, DR. CEE STATED HE WILL BE IN APPROX. 1500 FOR THE PROCEDURE. FAMILY UPDATED.
[2022-02-20 16:00] VITALS: BP 104/56
--- NOTE | 2022-02-20 16:20 | NUR ---
OR NURSE ARRIVED TO TRANSPORT PT TO OR FOR PROCEDURE. FAMILY AWARE.
[2022-02-20] MEDS ORDERED: fentaNYL citrate 0.05 MG/ML VIAL ONE (16:25)
[2022-02-20] MEDS ORDERED: PROPOFOL 200 MG/20 ML VIAL IV ONE ×2 (16:26→17:00)
[2022-02-20] MEDS ORDERED: LIDOCAINE/EPI MPF 1%1:200000 30 ML VIAL INJ ONE (16:30)
[2022-02-20] MEDS ORDERED: BUPIVACAINE MPF 0.25% 10 ML VIAL INJ ONE (16:30)
[2022-02-20] MEDS ORDERED: ceFAZolin 1,000 MG VIAL ONE (16:55)
[2022-02-20] MEDS ORDERED: ROCURONIUM 50 MG/5 ML VIAL IV ONE ×3 (16:58→18:04)
[2022-02-20] MEDS ORDERED: SUCCINYLCHOLINE CHLORIDE 200 MG/10 ML VIAL IVP ONE (16:58)
[2022-02-20] MEDS ORDERED: ONDANSETRON 4 MG/2 ML VIAL ONE (16:59)
[2022-02-20] MEDS ORDERED: MEPERIDINE 50 MG/ML SYR ONE ×2 (17:00)
[2022-02-20] MEDS ORDERED: SEVOFLURANE 250 ML BTL INH ONE (17:00)
[2022-02-20] MEDS ORDERED: METOCLOPRAMIDE 10 MG/2 ML INJ VIAL ONE (17:00)
[2022-02-20] MEDS ORDERED: SUGAMMADEX SODIUM 200 MG/2 ML VIAL IV ONE ×2 (17:00→18:19)
[2022-02-20] MEDS ORDERED: MEPERIDINE 25 MG/ML SYR ONE (18:21)
[2022-02-20] MEDS ORDERED: MORPHINE SULFATE 4 MG/ML SYR IV PRN (18:40)
[2022-02-20] MEDS ORDERED: HYDROcodone/APAP 5/325 MG 1 TAB TAB PO PRN (18:40)
[2022-02-20] MEDS ORDERED: HYDROmorphone 1 MG/ML AMP IVP PRN ×2 (18:40)
[2022-02-20] MEDS: LACTATED RINGERS 1,000 ML IV SCH (18:40)
[2022-02-20] MEDS ORDERED: diphenhydrAMINE 50 MG/ML VIAL IVP PRN (18:40)
[2022-02-20] MEDS ORDERED: MEPERIDINE 25 MG/ML SYR IVP PRN (18:40)
[2022-02-20] MEDS ORDERED: ONDANSETRON 4 MG/2 ML VIAL IVP PRN (18:40)
[2022-02-20] MEDS ORDERED: ONDANSETRON 4 MG/2 ML VIAL IV PRN (18:40)
--- NOTE | 2022-02-20 19:10 | NUR ---
PT RETURNED FROM OR VIA OR NURSE. PT CURRENTLY AWAKE, V/S WNL.
--- NOTE | 2022-02-20 19:53 | NUR ---
ENDORSED PT TO NIGHTSHIFT NURSE MEGAN FOR CONTINUITY OF CARE. PLAN OF CARE DISCUSSED. PT IN STABLE CONDITION.
--- NOTE | 2022-02-20 20:00 | NUR ---
C/O PAIN - BP 122/ 67 , 02 SAT 99 % , FULLY AWAKE , NOT IN DISTRESS , WILL MEDICATE . Addendum: 02/20/22 at 2013 by Coco Mendez RN W/ EXISTING IVF LR FROM OR - PER PHARMACIST THAT IVF IS COMPATIBLE W/ MORPHINE .
[2022-02-20] MEDS: MORPHINE SULFATE 2 MG/ML SYR IVP PRN (20:02)
--- NOTE | 2022-02-20 21:42 | NUR ---
c/o sob - o2 sat 99 to 100 % - hook to o2 at 2lpm/nc - refer to rt for further assessment . Addendum: 02/21/22 at 0732 by Coco Mendez RN ASSESS BY RT - NO FURTHER RECOMMENDATION FROM RT - RT JUST RE DEMO HOW TO USE TNE INCENTIVE SPIROMETRY .
--- NOTE | 2022-02-20 21:53 | NUR ---
PER PHARMACIST - ITS OK TO GIVE DILAUDID TIV - NOW - LONG MONITOR RR - PT IS ON O2 SAT MONITORING .
--- NOTE | 2022-02-20 22:05 | NUR ---
bp 113 /65 , O2 SAT 99 % -C/O PAIN - WILL MEDICATE .
--- NOTE | 2022-02-21 00:13 | NUR ---
FULLY AWAKE , NO S/SX OF DISTRESS NOTED , NO C/O PAIN , 02 SAT 99 % RR 18
[2022-02-21] MEDS: NACL 0.9% 1,000 ML IV SCH ×3 (00:53→15:31)
--- NOTE | 2022-02-21 01:40 | NUR ---
C/O PAIN - BP 112/78 , O2 SAT 99 % , RR 18 - WILL MEDICATE .
[2022-02-21] MEDS: MORPHINE SULFATE 2 MG/ML SYR IVP PRN (01:43)
--- NOTE | 2022-02-21 01:44 | NUR ---
PT C/O OF DIFFICULTY OF URINATION , PER HIM HE HAS AN URGE TO PEE , BUT NO CAME OUT - WILL REFER TO GEOSPATIAL DEVELOPER . Addendum: 02/21/22 at 0203 by Coco Mendez RN BLADDER SCAN - DONE - 40 CC - WILL PAGE DR. HERNANDEZ
--- NOTE | 2022-02-21 02:03 | NUR ---
DEBBY HERNANDEZ - WAITING TO CALL BACK Addendum: 02/21/22 at 0225 by Coco Mendez RN DR. HERNANDEZ CALLED - PER HIS ORDER - INCREASE IVF REGULATION TO 125CC/ HR
[2022-02-21 04:00] VITALS: BP 117/65
--- NOTE | 2022-02-21 04:00 | NUR ---
rounds , no s/sx of distress noted at this ti9me , father at bedside .
--- NOTE | 2022-02-21 06:00 | NUR ---
VOIDED FREELY . NO S/SX OF ACUTE DISTRESS NOTED .
--- NOTE | 2022-02-21 07:05 | NUR ---
RECEIVED ENDORSEMENT FROM MEGAN HAYDEN FOR CONTINUITY OF CARE. PATIENT IS STABLE AND RESTING. A/OX3. VERBALLY RESPONSIVE AND ABLE TO COMMUNICATE NEEDS. ON ROOM AIR WITH NO APPARENT S/SX OF ACUTE DISTRESS. RESPIRATIONS EVEN AND UNLABORED. IV SITE TO THE LAC 20G IS PATENT/INTACT WITH NS INFUSING AT 80 ML/HR. PT IS AMBULATORY. SKIN INTACT. CONTINENT OF VOID AND BM. PLAN OF CARE AND COMMUNICATION BOARD UPDATED. FAMILY MEMBER AT BEDSIDE. ALL SAFETY MEASURES IN PLACE. BED IN LOW/LOCKED POSITION. CALL LIGHT WITHIN REACH. WILL CONTINUE TO MONITOR.
--- NOTE | 2022-02-21 07:28 | NUR ---
ENDORSED - PT - STABLE - 4 SURGICAL WOUNDS - INTACT .
[2022-02-21 07:35] LABS: BASOPHILS % (AUTO) 0.3 % (0.0-2.0); EOSINOPHILS # (AUTO) 0.1 K/uL (0-0.4); EOSINOPHILS % (AUTO) 0.6 % (0.0-4.0); HEMATOCRIT 41.7 % (36-52); HEMOGLOBIN 13.9 g/dL (12.0-18.0); LYMPHOCYTES # (AUTO) 1.3 K/uL (2.0-11.5); LYMPHOCYTES % (AUTO) 14.6 % (20.5-51.1); MEAN CORPUSCULAR HEMOGLOBIN 29 pg (27-31); MEAN CORPUSCULAR HGB CONC 33 g/dL (33-37); MEAN CORPUSCULAR VOLUME 86.5 fL (80-94); MONOCYTES # (AUTO) 0.8 K/uL (0.8-1.0); MONOCYTES % (AUTO) 8.3 % (1.7-9.3); NEUTROPHILS % (AUTO) 76.2 % (42.2-75.2); PLATELET COUNT (AUTO) 283 K/uL (140-450); RED BLOOD CELL COUNT(AUTO) 4.82 MIL/uL (4.20-6.10); RED CELL DISTRIBUTION WIDTH 14.2 % (11.6-13.7); WHITE BLOOD COUNT (AUTO) 9.2 K/uL (4.8-10.8)
[2022-02-21 08:00] VITALS: BP 121/71
[2022-02-21 08:13] LABS: ALBUMIN 3.6 g/dL (3.4-5.0); ANION GAP 10.3 (8-16); CARBON DIOXIDE 27.6 mmol/L (21-32); CREATININE 0.8 mg/dL (0.6-1.3); MAGNESIUM 2.1 mg/dL (1.8-2.4); POTASSIUM 3.9 mmol/L (3.5-5.1); TOTAL BILIRUBIN 1.8 mg/dL (0.0-1.0)
--- NOTE | 2022-02-21 08:18 | NUR ---
RECEIVED REPORT FROM JUAN ANTONIO BUSTILLO, FOR CONTINUITY OF CARE. PT IS STABLE. PLAN OF CARE DISCUSSED.
[2022-02-21] MEDS: LACTATED RINGERS 1,000 ML IV SCH ×2 (09:00→11:20)
--- NOTE | 2022-02-21 09:05 | NUR ---
FIXED PATIENT'S IV LINE. INTACT/ASYMPTOMATIC AND FLUSHING WELL. PER FAMILY MEMBER, PATIENT WANTS TO WALK AROUND ROOM. EDUCATED PATIENT ON S/P LAP CHOLY. FAMILY MEMBER VERBALIZES UNDERSTANDING TO REPORT IF PATIENT PASSES GAS OR HAS A BM. DENIES PAIN. RESPIRATIONS EVEN AND UNLABORED WITH NO APPARENT S/SX OF ACUTE DISTRESS. COMMUNICATION BOARD UPDATED. ALL SAFETY MEASURES IN PLACE. CALL LIGHT WITHIN REACH. WILL CONTINUE TO MONITOR.
--- NOTE | 2022-02-21 11:05 | NUR ---
AUSCULTATED PATIENT'S ABD QUADRANTS AND BOWEL ACTIVITY PRESENT. DENIES PAIN. RESPIRATIONS EVEN AND UNLABORED WITH NO APPARENT S/SX OF ACUTE DISTRESS. ADVISED FAMILY MEMBER TO ENCOURAGE PATIENT TO AMBULATE AND USE INCENTIVE SPIROMETER INSTRUCTED BY RT. VERBALIZED UNDERSTANDING. FAMILY MEMBER AT BEDSIDE. COMMUNICATION BOARD UPDATED. ALL SAFETY MEASURES IN PLACE. CALL LIGHT WITHIN REACH. WILL CONTINUE TO MONITOR.
--- NOTE | 2022-02-21 13:05 | NUR ---
CHANGED PATIENT'S IVF BAG. TOLERATED WELL. DENIES PAIN. RESPIRATIONS EVEN AND UNLABORED WITH NO APPARENT S/SX OF ACUTE DISTRESS. PATIENT CURRENTLY EATING LUNCH WITH FAMILY MEMBER AT BEDSIDE. COMMUNICATION BOARD UPDATED. ALL SAFETY MEASURES IN PLACE. CALL LIGHT WITHIN REACH. WILL CONTINUE TO MONITOR.
--- NOTE | 2022-02-21 15:05 | NUR ---
PATIENT CURRENTLY AMBULATING WITH FAMILY MEMBER AROUND ROOM. DENIES PAIN. RESPIRATIONS EVEN AND UNLABORED WITH NO APPARENT S/SX OF ACUTE DISTRESS. COMMUNICATION BOARD UPDATED. ALL SAFETY MEASURES IN PLACE. CALL LIGHT WITHIN REACH. WILL CONTINUE TO MONITOR.
[2022-02-21 16:00] VITALS: BP 136/88
--- NOTE | 2022-02-21 17:15 | NUR ---
PATIENT'S FAMILY IS REQUESTING TO GET DC TODAY. CONTACTED DR. HERNANDEZ. IF MEDICALLY CLEARED BY DR. CEE, THEN PATIENT CAN GET DISCHARGED. PER DR. CEE'S NOTE, PATIENT IS RECOMMENDING GI EVAL PRIOR TO D/C. PATIENT'S FAMILY MEMBER VERBALIZED UNDERSTANDING AND WILL GO THROUGH THEIR OWN GI CONSULT THROUGH MAIN PCP. PATIENT WISHES TO GO AMA TONIGHT.
--- NOTE | 2022-02-21 18:29 | NUR ---
PATIENT'S FAMILY MEMBER SIGNED AMA FORM. PER PREVIOUS CONVERSATION, PATIENT WILL FOLLOW UP THROUGH THEIR MAIN PCP. VSS. DENIES PAIN. IV CATHETER INTACT WHEN DISCONNECTED. WRIST BAND REMOVED. PATIENT BELONGINGS INTACT WITH FAMILY MEMBER. DR. HERNANDEZ NOTIFIED. PATIENT LEFT WITH FAMILY MEMBER VIA AMBULATORY. PATIENT'S GAIT IS STEADY. PATIENT IS STABLE UPON AMA.
== END 2022-02-21 18:29 | disposition left against medical advice (07) | DRG 263 ==
LOC: MED 14:55 → MMU 19:33 → MTU 21:24
PROVIDERS: ADMIT Internal Medicine; ATTEND Internal Medicine
PROC: 0FT44ZZ Resection of Gallbladder, Percutaneous Endoscopic Approach (ICD-10-PCS; principal; 2022-02-19)
PROC: BF121ZZ Fluoroscopy of Gallbladder using Low Osmolar Contrast (ICD-10-PCS; 2022-02-19)
DX: K80.10 Calculus of gallbladder with chronic cholecystitis without obstruction (principal); F84.0 Autistic disorder; Z53.29 Procedure and treatment not carried out because of patient's decision for other reasons; K82.8 Other specified diseases of gallbladder; Z20.822 Contact with and (suspected) exposure to COVID-19
CPT/HCPCS: 36415; 74300; 76705; 78445; 80053; 81003; 82374; 83690; 83735; 85025; 86886; 86900; 86901; 87081; 99285; A9510; C1887; J0330; J0690; J1170; J2001; J2175; J2270; J2405; J2704; J2765; J3010; J3490; J7030; Q0092